=== PATIENT | male | born 1965 | race Caucasian/White ===

== ENCOUNTER 2020-03-16 13:07 | Outpatient (CLI) | payer OTHER ==
--- NOTE | 2020-03-16 13:33 | ULT ---
THYROID ULTRASOUND: HISTORY: Thyroid nodule. COMPARISON: None. FINDINGS: Thyroid isthmus: 0.26 cm. Right thyroid lobe: 4.9 x 2.0 x 2.3 cm. Left thyroid lobe: 4.6 x 1.6 x 1.8 cm. Thyroid nodules: Right thyroid lobe: Mixed solid cystic nodule in the upper pole the right thyroid lobe measures 0.4 x 0.3 x 0 point. Left thyroid lobe: No nodules. IMPRESSION: 1. Slightly complex nodule in the upper pole of the right thyroid lobe. 2. TIRADS Level TR3 mildly suspicious. Follow-up imaging in one year is recommended. Transcribed Date/Time: 03/16/2020 2:00 PM
== END 2020-03-16 13:08 | disposition home or self-care (01) ==
LOC: BICULT 13:07
PROVIDERS: ATTEND Otolaryngology Plastic Surgery within the Head & Neck
DX: E04.1 Nontoxic single thyroid nodule (principal); E05.90 Thyrotoxicosis, unspecified without thyrotoxic crisis or storm
CPT/HCPCS: 36415; 76536; 84439; 84443; 84481

== ENCOUNTER 2020-10-15 15:34 | Outpatient (CLI) | payer OTHER ==
--- NOTE | 2020-10-15 16:09 | ULT ---
EXAM: US Thyroid STANDARD PROVIDED CLINICAL HISTORY: Follow-up thyroid nodule. COMPARISON: 03/16/2020 FINDINGS: Thyroid isthmus: 0.3 cm Right thyroid lobe: 4.8 cm x 2.8 cm x 2.5 cm Left thyroid lobe: 4.6 cm x 1.7 cm x 1.8 cm. Thyroid nodules: Right thyroid lobe: No nodule is seen in the right lobe of the thyroid gland. There was mention of a nodule right lobe of thyroid gland on prior examination, but the nodule was actually in the left lobe of the thyroid gland on prior study. Left thyroid lobe: A 0.4 cm mixed solid and cystic nodule is again seen within the superior pole left lobe of the thyroid gland unchanged in size or appeared compared to prior exam. IMPRESSION: TI RADS level 3 nodule left lobe of the thyroid gland. Nodule in the left lobe of thyroid gland is un changed in size or appearance compared to prior exam. According to ACR white paper guidelines, no additional follow-up is warranted for a lesion of this size.
== END 2020-10-15 15:35 | disposition home or self-care (01) ==
LOC: BICULT 15:34
PROVIDERS: ATTEND Otolaryngology Plastic Surgery within the Head & Neck
DX: E04.2 Nontoxic multinodular goiter (principal)
CPT/HCPCS: 76536